=== PATIENT | female | born 1945 | race Caucasian/White ===

== ENCOUNTER 2017-03-29 12:36 | Emergency (ER) | payer MEDICARE, OTHER ==
--- NOTE | ~2017-03-29 | CR169 ---
[facility] A Service of [facility] & [facility] RADIOLOGY TEXT RESULTS PATIENT: ANNALISA ORO LOCATION: [facility] : 47 UNIT #: [id number] AGE: [address]: Dov Webb MD SEX: F ORDER DR: [id number] [facility] [address] [place], [place] [address] [id number] E MR#: [id number] Acc #: [id number] NAME: ANNALISA ORO. : 1945 SEX: F STUDY DATE/TIME: 03/29/2017 13:58 UNIT: [facility] ROOM: STUDY DESCRIPTION: CR Knee 2 Views Lt Attending Physician: Dov Webb M.D. Ordering Physician: Dov Webb M.D. MEDICAL IMAGING REPORT This report is preliminary unless electronic signature is present EXAM Left knee, 2 views HISTORY Pain and swelling of left knee for 3 days worse today. COMPARISON No comparisons. FINDINGS There is a small knee joint effusion. Chondrocalcinosis. No fracture or dislocation. IMPRESSION Small knee joint effusion. Chondrocalcinosis. Dictated by... Cornelius Raza M.D. THIS IS AN ELECTRONICALLY VERIFIED REPORT Cornelius Raza M.D. at 03/30/2017 3:49 PM MAURI/ashwin TD: 03/30/2017 00:38 JOB #: [id number] MEDICAL IMAGING REPORT Page 1 of 1 COPY
[2017-03-29 16:05] LABS: PROTEIN, BODY FLUID 3.7 gm/dL
[2017-03-29 16:37] LABS: BF CRYSTAL EXAM NO CRYSTALS SEEN; BODY FLUID SOURCE SYNOVIAL
[2017-03-29 16:38] LABS: BF TOTAL NUCLEATED CELL COUNT 26157 CMM (0-100); BODY FLUID APPEARANCE CLOUDY
[2017-03-29 16:39] LABS: BODY FLUID RBC <10000 CMM
== END 2017-03-29 18:50 | disposition home or self-care (01) ==
LOC: CED 12:36
PROVIDERS: Emergency Medicine
DX: M17.12 Unilateral primary osteoarthritis, left knee (principal); E11.9 Type 2 diabetes mellitus without complications
CPT/HCPCS: 20610; 73560; 82945; 82947; 84157; 87070; 87205; 89051; 89060; 99283